=== PATIENT | male | born 1980 | race Two or more races ===

== ENCOUNTER 2021-12-04 03:54 | Emergency (ER) | payer SELFPAY ==
[~2021-12-04] VITALS: Ht 170.2 cm; Wt 80.0 kg
[2021-12-04 04:33] VITALS: BP 128/86
== END 2021-12-04 04:38 | disposition home or self-care (01) ==
LOC: ER 03:54
DX: S00.91XA Abrasion of unspecified part of head, initial encounter (principal); R00.2 Palpitations; F15.10 Other stimulant abuse, uncomplicated; F14.10 Cocaine abuse, uncomplicated; X58.XXXA Exposure to other specified factors, initial encounter; Y93.89 Activity, other specified; Y92.89 Other specified places as the place of occurrence of the external cause; Y99.8 Other external cause status
CPT/HCPCS: 93005